=== PATIENT | male | born 1980 | race Two or more races ===

== ENCOUNTER → 2018-04-01 | Outpatient (CLI) | payer OTHER ==
[~2018-04-01] MED LIST: IOHEXOL 300 MG/ML 100ML BOTTLE IJ ONE
[2018-04-01 09:06] LABS: Albumin 3.9 g/dL (3.4-5.0); Calcium 8.9 mg/dL (8.5-10.1); Potassium 4.3 mmol/L (3.5-5.1)
[2018-04-01 09:09] LABS: Bilirubin, Total 0.2 mg/dL (0.2-1.0); Total Protein 7.8 g/dL (6.4-8.2)
== END | disposition home or self-care (01) ==
LOC: CT 08:21
DX: J98.11 Atelectasis (principal); J98.4 Other disorders of lung
CPT/HCPCS: 36415; 71260; 80053; Q9967